=== PATIENT | female | born 1970 | race Caucasian/White ===

== ENCOUNTER 2021-09-06 13:55 | Outpatient (CLI) | payer OTHER, SELFPAY ==
--- NOTE | ~2021-09-06 | XR_ITS ---
XR lumbar spine min 4V DATE: 09/06/2021 14:21 INDICATION: Left skin anesthesia. No injury. TECHNIQUE: AP, lateral, coned lateral lumbosacral views COMPARISON: None FINDINGS: There is mild thoracolumbar levoscoliosis. No fracture or bone destruction, spondylolysis. There is degenerative change at the L4-5 and L5-S1 apophyseal joints, with associated grade 1 anterol isthesis at L5-S1. Mild degenerative spurring of lower thoracic spine, minimal spurring of lumbar spine. The sacroiliac joints are intact. IMPRESSION: Mild thoracolumbar levoscoliosis Degenerative changes apophyseal joints at L4-5 and L5-S1 with associated grade 1 anterolisthesis at L 5-S1 Mild degenerative change of the lower thoracic and lumbar spine Reviewed, dictated and finalized at location B. IMPRESSION: Mild thoracolumbar levoscoliosis Degenerative changes apophyseal joints at L4-5 and L5-S1 with associated grade 1 anterolisthesis at L5-S1 Mild degenerative change of the lower thoracic and lumbar spine
--- NOTE | ~2021-09-06 | XR_ITS ---
XR hip BI wo pelvis DATE: 09/06/2021 14:21 INDICATION: Right hip pain. Left skin anesthesia. No injury. TECHNIQUE: AP and lateral views of each hip COMPARISON: None FINDINGS: No fracture or dislocation, avascular necrosis or bone destruction of either hip. Hip joint spaces are symmetric and relatively preserved. Normal alignment at the pubic symphysis and sacroiliac joints. IMPRESSION: No significant abnormality Reviewed, dictated and finalized at location B. IMPRESSION: No significant abnormality
== END 2021-09-06 13:56 | disposition home or self-care (01) ==
PROVIDERS: PCP Family Medicine; Visit Provider Family Medicine
DX: M25.551 Pain in right hip (principal); G89.29 Other chronic pain; R20.0 Anesthesia of skin; M51.37 Other intervertebral disc degeneration, lumbosacral region
CPT/HCPCS: 72110; 73521

== ENCOUNTER 2021-10-23 15:15 | Outpatient (CLI) | payer OTHER, SELFPAY ==
--- NOTE | ~2021-10-23 | XR_ITS ---
EXAM: XR ankle RT min 3V, XR foot RT min 3V DATE: 10/23/2021 15:39 (accession [id number]), 10/23/2021 15:40 (accession [id number]) HISTORY: ROLLED ANKLE 4 WEEKS AGO, SWELLING LATERALLY INTO FOOT . COMPARISON: None available. FINDINGS: Normal mineralization. Transverse minimally distracted fracture of the tip of the lateral malleolus. No lytic or blastic lesion. Achilles and plantar enthesopathy. Moderate hallux valgus and first MTP degenerative change. No erosion or periosteal change. Soft tissue swelling over the fractur e site. IMPRESSION: Transverse minimally distracted fracture of the tip of the right lateral malleolus. Reviewed, dictated and finalized at location K. IMPRESSION: Transverse minimally distracted fracture of the tip of the right la teral malleolus.
== END 2021-10-23 15:16 | disposition home or self-care (01) ==
PROVIDERS: PCP Family Medicine; Visit Provider Family Medicine
DX: S82.61XA Displaced fracture of lateral malleolus of right fibula, initial encounter for closed fracture (principal); X58.XXXA Exposure to other specified factors, initial encounter
CPT/HCPCS: 73610; 73630

== ENCOUNTER 2021-11-28 11:25 | Outpatient (CLI) | payer OTHER, SELFPAY ==
[2021-11-28 20:08] LABS: Alanine Aminotransferase 26 U/L (6-35); Albumin Level 4.6 g/dL (3.5-5.1); Alkaline Phosphatase 105 U/L (38-126); Anion Gap 13 mmol/L (8-16); Aspartate Amino Transferase 24 U/L (14-36); Bilirubin,Total 0.5 mg/dL (0.2-1.3); Blood Urea Nitrogen 18 mg/dL (7-17); Calcium 9.5 mg/dL (8.4-10.2); Carbon Dioxide 28 mmol/L (22-30); Chloride 101 mmol/L (98-107); Cholesterol 216 mg/dL (0-200); Estimated Glomerular Filt Rate > 60; Glucose 110 mg/dL (65-110); HDL Direct 65 mg/dL; Potassium 3.7 mmol/L (3.4-5.0); Sodium 142 mmol/L (137-145); Triglycerides 98 mg/dL (<150)
[2021-11-28 20:21] LABS: LDL Cholesterol Direct 118 mg/dL
[2021-11-28 20:22] LABS: Basophils Absolute Auto 0.1 K/mm3 (0.0-0.1); Basophils Percent Auto 0.7 % (0.2-1.2); Eosinophils Absolute Auto 0.3 K/mm3 (0-0.3); Eosinophils Percent Auto 2.9 % (0-4.4); Hematocrit 44.9 % (37.0-47.0); Hemoglobin 14.5 g/dL (12.0-15.0); Immature Granulocyte Absolute 0.03 K/mm3 (0.00-0.031); Immature Granulocyte Percent A 0.3 % (0-0.5); Lymphocytes Absolute Auto 2.66 K/mm3 (0.9-3.2); Lymphocytes Percent Auto 30.6 % (18.3-44.2); Mean Corpuscular HGB Conc 32.3 g/dl (32-36); Mean Corpuscular Hemoglobin 30.5 pg (26-34); Mean Corpuscular Volume 94.3 fl (80-100); Monocytes Absolute Auto 0.7 K/mm3 (0.1-0.6); Monocytes Percent Auto 7.8 % (2.6-8.5); Neutrophils Percent Auto 57.7 % (45.5-73.1); Platelet Count Result 378 k/mm3 (150-375); Red Blood Count 4.76 M/mm3 (4.2-5.4); Red Cell Distribution Width 12.7 % (11.5-14.5); White Blood Count 8.7 K/mm3 (4.5-10.0)
[2021-11-28 20:25] LABS: Hemoglobin A1C 6.3 % (<5.7)
[2021-11-28 20:28] LABS: Free T4 Free Thyroxine 0.99 ng/mL (0.78-2.19); Vitamin D 25 Hydroxy 58.1 ng/mL
== END 2021-11-28 11:26 | disposition home or self-care (01) ==
LOC: ANHGOSHLAB 11:27
PROVIDERS: PCP Family Medicine; Visit Provider Family Medicine
DX: R53.83 Other fatigue (principal); Z13.220 Encounter for screening for lipoid disorders; E55.9 Vitamin D deficiency, unspecified; R73.9 Hyperglycemia, unspecified
CPT/HCPCS: 36415; 80053; 80061; 82306; 83036; 84439; 84443; 85025

== ENCOUNTER 2022-01-25 08:16 | Outpatient (CLI) | payer OTHER, SELFPAY ==
--- NOTE | ~2022-01-25 | MM_ITS ---
EXAMINATION: MM screening yael BI w georgie HISTORY: Screening TECHNIQUE: Craniocaudal and mediolateral oblique 3-D tomosynthesis images were obtained and synthetic 2-D images were generated. CAD analysis was submitted and interpreted. COMPARISON: No prior mammogram is available for comparison at this institution. BREAST PARENCHYMAL COMPOSITION: There are scattered areas of fibroglandular density. FINDINGS: There is no evidence of suspicious mass, calcification, or architectural distortion to sugg est malignancy in either breast. There has been no suspicious interval change. IMPRESSION: 1. No mammographic evidence of malignancy. 2. Recommend routine screening mammography in one year. BI-RADS Category 1: Negative Reviewed, dictated and finalized at location B. OR SPECIALIST
== END 2022-01-25 08:17 | disposition home or self-care (01) ==
LOC: ANHIMG 08:17
PROVIDERS: PCP Family Medicine; Visit Provider Obstetrics & Gynecology
DX: Z12.31 Encounter for screening mammogram for malignant neoplasm of breast (principal)
CPT/HCPCS: 77063; 77067

== ENCOUNTER 2023-01-16 15:47 | Emergency (ER) | payer OTHER, SELFPAY ==
[2023-01-16 15:55] VITALS: BP 147/81; PULSE 65; RESP 16; TEMP 36.6; O2SAT 100
--- NOTE | 2023-01-16 16:35 | ED.GENADULT ---
HPI - General Adult General Chief complaint: Skin/Abscess/Foreign Body Stated complaint: Rash Source: patient, RN notes reviewed and old records reviewed Mode of arrival: ambulatory Limitations: no limitations History of Present Illness HPI narrative: 52-year-old female presents with pruritic rash for over 3 weeks. Patient denies changing any products or exposures. Patient states are PCP approximately 3 weeks ago and referred to an adult basic education instructor. patient states does not have referral and that rash and itching is worse. Patient taking Benadryl with little relief MD complaint: Steroids as directed. Cetirizine (Zyrtec) daily Can take Benadryl at nig Onset (ago): week(s) (3) Location: chest, back, upper extremity and lower extremity Related Data Home Medications Medication Instructions Recorded Confirmed cholecalciferol (vitamin D3) 125 125 mcg PO DAILY 09/05/21 01/16/23 mcg (5,000 unit) capsule (Dialyvite Vitamin D) ferrous fumarate 324 mg (106 mg 324 mg PO DAILY 09/05/21 01/16/23 iron) tablet multivitamin (Super Multivitamin 1 tablet PO DAILY 09/05/21 01/16/23 tablet) omega 9-auw-ihg-fish oil 910 1 cap PO DAILY 09/05/21 01/16/23 mg-1,400 mg capsule Allergies Allergy/AdvReac Type Severity Reaction Status Date / Time adhesive AdvReac Mild RASH Verified 01/16/23 16:06 latex AdvReac Mild ITCHING, Verified 01/16/23 16:06 SWELLING Sulfa (Sulfonamide AdvReac Mild Hives Verified 01/16/23 16:06 Antibiotics) Review of Systems Constitutional: Constitutional: Reports no additional constitutional complaints Eyes: Eyes: Reports no additional eye complaints ENT: Reports system reviewed and no additional complaints, except as documented Cardiovascular: Cardiovascular: Reports no additional cardiovascular complaints Respiratory: Respiratory: Reports no additional respiratory complaints Integumentary/Breasts: Skin/Breast: Reports pruritus and Reports rash Neurologic: Reports system reviewed and no additional complaints, except as documented PMFSH Past Medical History Medical History Anxiety Arthritis Closed fracture of lateral malleolus of right ankle Screening mammogram, encounter for Wears glasses Wheezing Surgical History Surgical History delivery delivered 05/29/97 primary c/s--uterine swelling History of dilation and curettage (12/31/06) hscope d&C/polypectomy--polyps History of endometrial ablation (01/24/11) hscope endometrial ablation/tubal ligation--abnormal uterine bleeding History of right salpingo-oophorectomy (04/16/16) History of robot-assisted laparoscopic hysterectomy (04/16/16) RA TLH w/RSO--right adnexal pain, adenomyosis, benign paratubal cyst History of tubal ligation (01/24/11) Hx of appendectomy (~1983) Hx of tonsillectomy (~1973) Family History Family History Father Leukemia Mother Diabetes mellitus Hypertension Cerebrovascular accident Sibling Hypertension brother Heart disease brother Grandparent Heart problem Social History Social History Smoking status: Never smoker Tobacco type: cigarettes Second hand tobacco smoke exposure: No Smoking end date: 02/17/88 Alcohol intake: former Alcohol use details: wine/wine cooler less than once a month Substance use: never Substance use type: does not use Lack of Transportation: No Lack of Food: Never True Current Housing: I Have Housing Concerned About Future Housing: No Difficulty Paying Gas/Electric Bills: No Difficulty Paying for Meds: No Currently Unemployed: No Education: Associate Degree Living arrangements: other Additional living arrangements comments: Occupation/Education: occupation Additional o
== END 2023-01-16 16:45 | disposition home or self-care (01) ==
PROVIDERS: Emergency Provider Registered Nurse; PCP Family Medicine
DX: L23.9 Allergic contact dermatitis, unspecified cause (principal); M19.90 Unspecified osteoarthritis, unspecified site
CPT/HCPCS: 99213; G0463

== ENCOUNTER 2023-04-29 13:28 | Outpatient (CLI) | payer OTHER, SELFPAY ==
--- NOTE | ~2023-04-29 | MM_ITS ---
EXAMINATION: MM screening yael BI w georgie HISTORY: Screening mammogram TECHNIQUE: Craniocaudal and mediolateral oblique 3-D tomosynthesis images were obtained and synthetic 2-D images were generated. CAD analysis was submitted and interpreted. COMPARISON: 01/25/2022 bilateral screening mammogram 01/18/2016 diagnostic right mammogram 01/04/2016 bilateral screening mammogram BREAST PARENCHYMAL COMPOSITION: There are scattered areas of fibroglandular density. FINDINGS: There is no evidence of suspicious mass, calcification, or architectural distortion to sugg est malignancy in either breast. There has been no suspicious interval change. IMPRESSION: 1. No mammographic evidence of malignancy. 2. Recommend routine screening mammography in one year. BI-RADS Category 1: Negative Reviewed, dictated and finalized at location A.
== END 2023-04-29 13:29 | disposition home or self-care (01) ==
LOC: ANHIMG 13:31
PROVIDERS: PCP Family Medicine; Visit Provider Obstetrics & Gynecology
DX: Z12.31 Encounter for screening mammogram for malignant neoplasm of breast (principal)
CPT/HCPCS: 77063; 77067

== ENCOUNTER 2023-06-03 11:49 | Outpatient (CLI) | payer OTHER, SELFPAY ==
[2023-06-03 19:34] LABS: CRP < 0.5 mg/dL (<1.0)
[2023-06-03 19:59] LABS: Erythrocyte Sedimentation Rate 8 mm/hr (0-20)
== END 2023-06-03 11:50 | disposition home or self-care (01) ==
LOC: ANHGOSHLAB 11:51
PROVIDERS: PCP Family Medicine; Visit Provider Allergy & Immunology
DX: L50.1 Idiopathic urticaria (principal)
CPT/HCPCS: 36415; 82785; 83520; 84443; 85652; 86038; 86140; 86376

== ENCOUNTER 2024-07-06 11:30 | Outpatient (CLI) | payer OTHER, SELFPAY ==
--- NOTE | ~2024-07-06 | XR_ITS ---
3 VIEWS LUMBAR SPINE Ordering provider: Pat Singh DO History: . Left lateral thigh numbness . Comparison: None. FINDINGS: VERTEBRAL BODIES:Minimal anterolisthesis at the level of L4-L5. No visible fracture or subluxation. DISK SPACES: Narrowing of the disc L4-L5 and L5-S1. Facet joint disease at the level of L3-L4, L4-L5 and L5-S1. SOFT TISSUES: Normal. IMPRESSION: No acute osseous abnormality lumbar spine. Degenerative disc disease at the level of L4-L5. Reviewed, dictated and finalized at location A.
--- NOTE | ~2024-07-06 | XR_ITS ---
Right foot Technique: AP, oblique, and lateral views were obtained. Clinical History: Heel pain Findings: No acute fracture or dislocation is seen. There is mild to moderate degenerative change of the first metatarsophalangeal joint. Remaining joint spaces are intact. Plantar calcaneal spur presen t. Soft tissues are unremarkable. Impression: Plantar calcaneal spur. Mild to moderate degenerative change of the first MTP joint. Reviewed, dictated and finalized at location M. Impression: Plantar calcaneal spur. Mild to moderate degenerative change of the first MTP joint.
== END 2024-07-06 11:31 | disposition home or self-care (01) ==
LOC: GOSHIMG 11:31
PROVIDERS: PCP Podiatrist Foot & Ankle Surgery; Visit Provider Family Medicine
DX: M51.369 Other intervertebral disc degeneration, lumbar region without mention of lumbar back pain or lower extremity pain (principal); M19.071 Primary osteoarthritis, right ankle and foot; R20.2 Paresthesia of skin
CPT/HCPCS: 72110; 73630

== ENCOUNTER 2024-09-14 10:08 | Outpatient (CLI) | payer OTHER, SELFPAY ==
--- NOTE | ~2024-09-14 | MM_ITS ---
EXAMINATION: MM screening [facility] BI w [place]ie HISTORY: Screening TECHNIQUE: Craniocaudal and mediolateral oblique 3-D tomosynthesis images were obtained and synthetic 2-D images were generated. CAD analysis was submitted and interpreted. COMPARISON: Comparison to multiple prior studies sequentially, with oldest reviewed study dated 12/17. BREAST PARENCHYMAL COMPOSITION: There are scattered areas of fibroglandular density. FINDINGS: There is no evidence of suspicious mass, calcification, or architectural distortion to sugg est malignancy in either breast. There has been no suspicious interval change. IMPRESSION: 1. No mammographic evidence of malignancy. 2. Recommend routine screening mammography in one year. BI-RADS Category 1: Negative Reviewed, dictated and finalized at location B.
--- OUTSIDE RECORDS SUMMARY | 2024-09-14 10:33 | XMS_ITS | Encounter Summary ---
Author Organization 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 Historical Provider [facility] MARIAH VALDES Final Result documented in this encounter Visit Diagnoses Not on filedocumented in this encounter Care Teams Mergers And Acquisitions Banker Relationship Specialty [place] [address] [place] [address] PCP - General 06/11/16 documented as of this encounter
--- OUTSIDE RECORDS SUMMARY | 2024-09-14 10:34 | XMS_ITS | Clinical Summary ---
Author Organization [facility] Address [address] [place] [address] Care Team Providers Care Phonograph Mechanic Name Role Phone Unavailable Primary Care Provider Unavailabl e Social History Tobacco Use Types Packs/Day Years Used Date Smoking Tobacco: Never Assessed Comments Unknown Sex and Gender Information Value Date Recorded Sex Assigned at Not on file Legal Sex Female 8:29 AM DIRECTOR OF CATEGORY MANAGEMENT Gender Identity Not on file Sexual Orientation Not on file Plan of Treatment Health Maintenance Due Date Last Done Comments Hepatitis C Virus (HCV) Screening 1968 TdaP Immunization 1968 Hepatitis B Immunization (1 of 3 - 19+ 3-dose series) 02/18/1987 Pap Smear 02/18/1989 Cervical Cancer Screening (CCS) 02/18/1998 HPV/Cotest 02/18/1998 Cologuard 02/18/2013 Colonoscopy 02/18/2013 Colorectal Cancer Screening 02/18/2013 Immunochemical Fecal Occult Blood 02/18/2013 Pneumococcal Immunization (5 0+ years) (1 of 1 - PCV) 02/18/2018 Zoster Immunization (1 of 2) 02/18/2018 SARS-COV-2 Immunization ( - 2023-25 season) 2023 Influenza Immunization (#1) 2024 Respiratory Syncytial Virus (RSV) Immunization (Adult) (1 - 1-dose 75+ series) 02/18/2043 Human Papillomavirus (HPV) Immunization Aged Out No longer eligible b ased on patient's age to complete this topic Meningococcal Immunization (ACWY) Aged Out No longer eligible based on patient's age to complete this topic Rotavirus Immunization Aged Out No lo nger eligible based on patient's age to complete this topic
--- OUTSIDE RECORDS SUMMARY | 2024-09-14 10:34 | XMS_ITS | Referral Summary ---
Author Organization [facility] [address] Address [address] [place] [address] Care Team Providers Care Software Engineer Name Role Phone Jose Reilly TECHNICAL SUPPORT PROFESSIONAL Primary Care Provide r Allergies Active Allergy Reactions Criticality Noted Date Comments Latex Itching,Edema,Redness High Sulfa (Sulfonamide Antibiotics) Hives High Medications cholecalciferol (VITAMIN D-3) 5,000 unit capsule Take 5,000 Units by mouth daily. Active vitamin B11-ulppq acid 0.5-1 mg tablet Take by mouth daily. 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 Gender Identity Not on file Sexual Orientation Not on file Last Filed Vital Signs Vital Sign Reading Time Taken Comments Blood Pressure 110/76 10/08/2016 8:52 AM CDT Pulse 76 10/08/2016 8:52 AM CDT Temperature - - Respiratory Rate 12 09/10/2016 8:46 AM CDT Oxygen Saturation 97% 10/08/2016 8:52 AM CDT Inhaled Oxygen Concentration - - Weight 90.7 kg (200 lb) 10/08/2016 8:52 AM CDT Height 167.6 cm (5' 6) 10/08/2016 8:52 AM CDT Body Mass Index 32.28 10/08/2016 8:52 AM CDT Plan of Treatment Not on file Care Teams Software Engineer Relationship Specialty [place] [address] [place] [address] PCP - General 06/11/16
--- OUTSIDE RECORDS SUMMARY | 2024-09-14 10:34 | XMS_ITS | Clinical Summary ---
Author Organization [facility] Address [address] [place] [address] Care Team Providers Care Auxiliary Engineer Name Role Phone Vipul Daniels MD Primary Care Provider [phone] Source Comments [facility],non-owned Affiliates and Associated Physician Practices is amultiple site organization consisting of ambulatory clinics and hospital sitesin [place], [place], [place] and [place]. This disclosure is being madepursuant to the Care Everywhere program and may not contain all information available regarding this patient. Last updated 17.[facility] Allergies Active Allergy Reactions Criticality Noted Date Comments Adhesive Sensitivity Urticaria Medium 08/17/2017 redness Latex Swelling,Itching,Other High Sulfa Drugs Urticaria High Medications * Be aware that medications may not be up to date on this document. Alwaysverify current medications with the patient. 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 Family History Medical History Relation Name Comments Psoriasis Brother Cancer - Other Father Asthma Neg Hx CVA Neg Hx Cancer - Breast Neg Hx Cancer - Skin, Melanoma Neg Hx Cancer - Skin, Non Melanoma Neg Hx Eczema Neg Hx Hemophilia Neg Hx Relation Name Status Comments Brother Father Social History Tobacco Use Types Packs/Day Years Used Date Smoking Tobacco: Former Smokeless Tobacco: Never Alcohol Use Standard Drinks/Week Comments No 0 (1 standard drink = 0.6 oz pur e alcohol) Comments Unknown Sex and Gender Information Value Date Recorded Sex Assigned at Not on file Legal 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 Gender Identity Not on file Sexual Orientation Not on file Last Filed Vital Signs Vital Sign Reading Time Taken Comments Blood Pressure - - Pulse - - Temperature - - Respiratory Rate - - Oxygen Saturation - - Inhaled Oxygen Concentration - - Weight 88.5 kg (195 lb) 08/17/2017 12:59 PM CDT Height 165.1 cm (5' 5) 08/17/2017 12:59 PM CDT Body Mass Index 32.45 08/17/2017 12:59 PM CDT Plan of Treatment Health Maintenance Due Date Last Done Comments COLOGUARD (AGES 45-75) - COL ON CA SCREENING 1968 COLON MONITORING 1968 COLONOSCOPY - COLON CA SCREENING 1968 CT COLONOGRAPHY - COLON CA SCREENING 1968 Colorectal Cancer Screening 1968 FIT - COLON CA SCREENING 1968 FLEX SIG - COLON CA SCREENING 1968 LIPID TESTING 1968 MAMMOGRAM 1968 HIV SCREENING 02/18/1983 HEPATITIS C SCREENING 02/14/1986 DTAP/TDAP/TD VACCINES (1 - Tdap) 02/18/1987 HEPATITIS B VACCINE (1 of 3 - 19+ 3-dose series) 02/18/1987 SCREENING FOR DIABETES 08/17/2017 PNEUMOCOCCAL VACCINE 50+ (1 of 1 - PCV) 02/18/2018 ZOSTER VACCINE (1 of 2) 02/18/2018 COVID-19 VACCINE (1 - 2023-2 5 season) 2023 DEPRESSION SCREENING 02/17/2024 INFLUENZA VACCINE (#1) 2024 HIB VACCINE Aged Out No longer eligi ble based on patient's age to complete this topic HPV VACCINE Aged Out No longer eligi ble based on patient's age to complete this topic MENINGOCOCCAL (Group B) VACC INE SHARED DECISION-MAKING Aged Out No longer eligibl e based on patient's age to complete this topic MENINGOCOCCAL GROUPS A/C/Y/W VACCINE Aged Out No longer eligible b ased on patient's age to complete this topic Insurance [facility] [place] [address] Care Teams Auxiliary Engineer Relationship Specialty Start Date End Date Vipul Daniels MD PCP - General 08/17/17
--- OUTSIDE RECORDS SUMMARY | 2024-09-14 10:34 | XMS_ITS | Clinical Summary ---
Author Organization [facility] [address] Address [address] [place] [address] Care Team Providers Care Refueling Ramp Supervisor Name Role Phone Tommie Jose Baker HEALTH SUPPORT SPECIALIST Primary Care Provide r Allergies Active Allergy Reactions Criticality Noted Date Comments Latex Itching,Edema,Redness High Sulfa (Sulfonamide Antibiotics) Hives High Medications cholecalciferol (VITAMIN D-3) 5,000 unit capsule Take 5,000 Units by mouth daily. Active vitamin D72-ttnwh acid 0.5-1 mg tablet Take by mouth daily. Active Active Problems No known active problems Family History Medical History Relation Name Comments Other Father 2 Alive and well; Diabetes Mother 2 Diabetes mellit ; Heart attack Mother 2 Myocardial infa rction; Hypertension Mother 2 Hypertension; Other Mother 2 Alive and well; Relation Name Status Comments Father 1 Alive Father 2 Mother 1 Alive Mother 2 Social History Tobacco Use Types Packs/Day Years Used Date Smoking Tobacco: Former Cigarettes Smokeless Tobacco: Never Alcohol Use Standard Drinks/Week Comments No 0 (1 standard drink = 0.6 oz pur e alcohol) Comments Unknown Sex and Gender Information Value Date Recorded Sex Assigned at Not on file Legal Sex Female 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
== END 2024-09-14 10:09 | disposition home or self-care (01) ==
PROVIDERS: PCP Family Medicine; Visit Provider Obstetrics & Gynecology
DX: Z12.31 Encounter for screening mammogram for malignant neoplasm of breast (principal)
CPT/HCPCS: 77063; 77067